=== PATIENT | female | born 1995 | race Caucasian/White ===

== ENCOUNTER 2017-07-23 21:01 | Emergency (ER) | payer OTHER ==
--- NOTE | 2017-07-23 21:23 | PDOC ---
Rapid Medical Evaluation Time Seen by Provider: 07/23/17 21:19 Medical Evaluation: 07/23/17 21:19 I have performed a brief in-person evaluation of this patient. The patient presents with a chief complaint of: mid chest pain x 1 week. Reports pain started intermittently now constant. Denies nausea or dizziness. Pertinent physical exam findings: appears anxious in triage lungs clear bilaterally + tenderness to mid chest I have ordered the following: ekg, urine The patient will proceed to the ED for further evaluation
[2017-07-23 21:24] VITALS: BP 110/69; PULSE 83; TEMP 98.8; BMI 50.5
--- NOTE | 2017-07-23 22:41 | PDOC ---
History of Present Illness - General History Source: Patient, Old Records Exam Limitations: No Limitations - History of Present Illness Initial Comments: 07/23/17 22:54 The patient is a 21 year old female with a past medical history of anemia who presents to the emergency department today with chest pain. She reports that her pain is left sided, pressure like in sensation, non-radiating, and unaccompanied by shortness of breath. She reports that she normally has a very heavy period and that her last menstrual period was one month ago. She denies taking any contraceptive. She denies any history of smoking or recent long -distance travel. She reports that her family history is positive for diabetes and blood pressure but reports that she does not know her biological father. <Jacky Ross - Last Filed: 07/23/17 23:02> - General History Source: Patient <FamCarlton bellamy - Last Filed: 07/24/17 01:43> - General Chief Complaint: Chest Pain Stated Complaint: CHEST PAIN Time Seen by Provider: 07/23/17 21:19 Past History <Jacky Ross - Last Filed: 07/23/17 23:02> - Past Medical History COPD: No - Suicide/Smoking/Psychosocial Hx Smoking History: Never smoked Have you smoked in the past 12 months: No Information on smoking cessation initiated: No Hx Alcohol Use: No Drug/Substance Use Hx: No Substance Use Type: None <Carlton Snow - Last Filed: 07/24/17 01:43> - Past Medical History Allergies/Adverse Reactions: Allergies Allergy/AdvReac Type Severity Reaction Status Date / Time No Known Allergies Allergy Verified 07/23/17 21:23 Review of Systems - Review of Systems Able to Perform ROS?: Yes Comments:: 07/23/17 22:54 CONSTITUTIONAL: Absent: fever, no chills, no fatigue EYES: Absent: visual changes ENT: Absent: ear pain, no sore throat CARDIOVASCULAR: (+) Chest pain Absent: no palpitations RESPIRATORY: Absent: cough, no SOB GI: Absent: abdominal pain, no nausea, no vomiting, no constipation, no diarrhea GENITOURINARY: Absent: dysuria, no frequency, no hematuria MUSCULOSKELETAL: Absent: back pain, no arthralgia, no myalgia SKIN: Absent: rash <Jacky Ross - Last Filed: 07/23/17 23:02> *Physical Exam - Vital Signs Last Vital Signs Temp Pulse Resp BP Pulse Ox 98.8 F 83 18 110/69 100 07/23/17 21:20 07/23/17 21:20 07/23/17 21:20 07/23/17 21:20 07/23/17 21:20 - Physical Exam Comments: 07/23/17 22:54 GENERAL: Well-appearing, well-nourished. No apparent distress. HEENT: Normocephalic, atraumatic. PERRL, EOM intact. CARDIOVASCULAR: Normal S1, S2. Regular rate and rhythm. PULMONARY: (+) Tachypnic, mild conversational dyspnea. Clear to auscultation bilaterally. ABDOMEN: Soft, non-distended, non-tender. EXTREMITIES: Normal ROM in all four extremities. No gross deformities. SKIN: Warm, dry. No rash NEUROLOGICAL: No focal neurological deficits. 07/23/17 23:02 <Jacky Ross - Last Filed: 07/23/17 23:02> - Vital Signs Last Vital Signs Temp Pulse Resp BP Pulse Ox 98.8 F 83 18 110/69 100 07/23/17 21:20 07/23/17 21:20 07/23/17 21:20 07/23/17 21:20 07/23/17 21:20 <Carlton Snow - Last Filed: 07/24/17 01:43> Heart Score/ECG Review - ECG Impressions Comment:: 07/23/17 22:55 Normal Sinus Rhythm Normal ECG <Jakcy Ross - Last Filed: 07/23/17 23:02> ED Treatment Course - LABORATORY CBC & Chemistry Diagram: 07/23/17 23:13 07/23/17 23:13 <Carlton Snow - Last Filed: 07/24/17 01:43> Medical Decision Making - Medical Decision Making 07/24/17 01:43 Dr. Snow: The scribe's documentation has been prepared under my direction and personally reviewed by me in its entirery. I confirm that the note above accurately reflects all work, treatment, procedures, and medical decision making performed by me. <Carlton Snow - Last Filed: 07/24/17 01:43> *DC/Admit/Observation/Transfer - Attestations Scribe Attestion: 07/23/17 22:54 Documentation prepared by Jacky Ross, acting as medical equipment repair technician for Carlton Snow DO. <Jacky Ross - Last Filed: 07/23/17 23:02> - Discharge Dispostion Decision to Admit order: No <Carlton Snow - Last Filed: 07/24/17 01:43> Diagnosis at time of Disposition: Chest pain Qualifiers: Chest pain type: unspecified Qualified Code(s): R07.9 - Chest pain, unspecified - Discharge Dispostion Disposition: HOME Condition at time of disposition: Stable - Referrals Referrals: Oleg Alcala MD [Staff Physician] - - Patient Instructions Printed Discharge Instructions: DI for Chest Pain Additional Instructions: Please follow up with the doctor referred to you in the department.
[2017-07-23 23:30] LABS: BASO % 0.5 % (0-2.0); EOS % 1.5 % (0-4.5); HEMOGLOBIN 13.9 GM/dL (10.7-15.3); LYMPH % 24.8 % (8-40); MCH 28.4 pg (25.7-33.7); MEAN CELL VOLUME 83.6 fl (80-96); MONO % 9.2 % (3.8-10.2); PLATELET COUNT 302 K/MM3 (134-434); RDW 13.9 % (11.6-15.6); WHITE BLOOD COUNT 11.8 K/mm3 (4.0-10.0)
[2017-07-23 23:42] LABS: INR 1.05 (0.82-1.09); PROTHROMBIN TIME (PATIENT) 11.9 SEC (9.7-13.0)
[2017-07-23 23:44] LABS: ACTIVATED PTT 29.9 SECONDS (26.9-34.4)
[2017-07-23 23:54] LABS: ALBUMIN 4.2 g/dl (3.4-5.0); ANION GAP 10 (8-16); BILIRUBIN,TOTAL 0.4 mg/dL (0.2-1.0); BLOOD UREA NITROGEN 12 mg/dL (7-18); CALCIUM 8.9 mg/dL (8.5-10.1); CHLORIDE 110 mmol/L (98-107); CO2 19 mmol/L (21-32); CREATININE 0.7 mg/dL (0.55-1.02); GLUCOSE,RANDOM 80 mg/dL (74-106); SGPT/ALT 19 U/L (12-78); SODIUM 139 mmol/L (136-145); TOT PROT 8.3 g/dl (6.4-8.2)
[2017-07-23 23:56] LABS: ALK PHOS 61 U/L (45-117)
[2017-07-23 23:57] LABS: POTASSIUM 3.9 mmol/L (3.5-5.1); SGOT/AST 14 U/L (15-37)
--- NOTE | 2017-07-24 12:14 | EKG ---
Test Reason : Blood Pressure : / mmHG Vent. Rate : 082 BPM Atrial Rate : 082 BPM P-R Int : 180 ms QRS Dur : 078 ms QT Int : 358 ms P-R-T Axes : 059 040 058 degrees QTc Int : 418 ms NORMAL SINUS RHYTHM NORMAL ECG NO PREVIOUS ECGS AVAILABLE Confirmed by MD WILLIS, NURIA ([id number]) on 07/24/2017 12:13:39 PM Referred By: Confirmed By:NURIA PEDRO MD
== END 2017-07-24 01:46 | disposition home or self-care (01) ==
LOC: JER 21:01
DX: R07.9 Chest pain, unspecified (principal); D64.9 Anemia, unspecified
CPT/HCPCS: 36415; 71275-TC; 80053; 82550; 84484; 84703; 85025; 85379; 85610; 85730; 86850; 86900; 86901; 93005; 93010; 99281-25

== ENCOUNTER 2017-11-15 21:20 | Emergency (ER) | payer OTHER ==
[2017-11-15 21:26] VITALS: BP 100/65; PULSE 72; TEMP 98.2; BMI 23.0
--- NOTE | 2017-11-15 21:27 | PDOC ---
Rapid Medical Evaluation Chief Complaint: Pain Time Seen by Provider: 11/15/17 21:24 Medical Evaluation: Allergies Allergy/AdvReac Type Severity Reaction Status Date / Time No Known Allergies Allergy Verified 08/16/17 16:04 11/15/17 21:25 CC: Abdominal pain HPI: Pt is a 22 YO female who states she had an abrupt onset of RLQ pain x today. Denies hx of abdominal surgeries. Denies fever, denies nausea. LMP was 2 -3 weeks ago. Pain 510. I have performed a brief in- person evaluation of this patient. Pertinent Physical Findings: Skin: Clear Lungs: Clear Heart: RRR Abdomen: Pt has RLQ pain, rebound tenderness, no guarding. Neuro: Alert Psych: Appropriate affect I have ordered: Abdominal protocol The patient will proceed to: Main ED to r/o appy Discharge Disposition - Diagnosis Abdominal pain Qualifiers: Abdominal location: right lower quadrant Qualified Code(s): R10.31 - Right lower quadrant pain - Referrals - Patient Instructions - Post Discharge Activity
[2017-11-15 21:54] LABS: BASO % 0.7 % (0-2.0); EOS % 1.6 % (0-4.5); HEMATOCRIT 37.1 % (32.4-45.2); HEMOGLOBIN 12.5 GM/dL (10.7-15.3); LYMPH % 23.5 % (8-40); MCH 28.2 pg (25.7-33.7); MCHC 33.6 g/dl (32.0-36.0); MEAN CELL VOLUME 83.8 fl (80-96); MEAN PLT VOLUME 9.3 fl (7.5-11.1); MONO % 7.2 % (3.8-10.2); PLATELET COUNT 329 K/MM3 (134-434); RBC 4.43 M/mm3 (3.60-5.2); RDW 13.8 % (11.6-15.6); WHITE BLOOD COUNT 8.1 K/mm3 (4.0-10.0)
[2017-11-15] MEDS ORDERED: SODIUM CHLORIDE 1,000 ML IV STA (22:14)
[2017-11-15] MEDS ORDERED: ACETAMINOPHEN 325 MG TABLET (FP) PO ONE (22:14)
[2017-11-15 22:19] LABS: ALBUMIN 3.7 g/dl (3.4-5.0); ALK PHOS 53 U/L (45-117); ANION GAP 6 MMOL/L (8-16); BILIRUBIN,TOTAL 0.2 mg/dL (0.2-1); BLOOD UREA NITROGEN 13 mg/dL (7-18); CHLORIDE 109 mmol/L (98-107); CO2 23 mmol/L (21-32); CREATININE 0.7 mg/dL (0.55-1.3); GLUCOSE,RANDOM 125 mg/dL (74-106); LIPASE 117 U/L (73-393); POTASSIUM 3.6 mmol/L (3.5-5.1); SGOT/AST 12 U/L (15-37); SGPT/ALT 18 U/L (13-61); SODIUM 138 mmol/L (136-145); TOT PROT 7.6 g/dl (6.4-8.2)
--- NOTE | 2017-11-15 23:05 | PDOC ---
History of Present Illness - General Chief Complaint: Pain Stated Complaint: PAIN Time Seen by Provider: 11/15/17 21:24 History Source: Patient Exam Limitations: No Limitations - History of Present Illness Initial Comments: 11/15/17 22:59 Patient is 22F with history of ovarian cysts here today complaining of sudden onset suprapubic to RLQ abdominal pain that started at 3pm today. Patient states that her pain is relieved with sitting up and worsened with laying down. Denies fevers, chills, nausea, vomiting. Denies pelvic pain, dysuria and vaginal discharge. LMP 2-3 weeks ago. Denies dysuria, diarrhea, constipation. Patient is walking with crutches because of an ankle sprain diagnosed at urgent care. Past History - Past Medical History Allergies/Adverse Reactions: Allergies Allergy/AdvReac Type Severity Reaction Status Date / Time No Known Allergies Allergy Verified 11/15/17 21:26 Home Medications: Ambulatory Orders Norethindrone-E.estradiol-Iron [Junel Fe 1 mg-20 Mcg Tablet] 1 each PO DAILY 05/30 COPD: No - Reproductive History (#): 0 - Suicide/Smoking/Psychosocial Hx Smoking History: Never smoked Have you smoked in the past 12 months: No Hx Alcohol Use: No Drug/Substance Use Hx: No Substance Use Type: None Review of Systems - Review of Systems Comments:: 11/15/17 23:03 GENERAL/CONSTITUTIONAL: No fever or chills. No weakness. HEAD, EYES, EARS, NOSE AND THROAT: No change in vision. No sore throat. CARDIOVASCULAR: No chest pain or shortness of breath RESPIRATORY: No cough, wheezing, or hemoptysis. GASTROINTESTINAL: No nausea, vomiting, diarrhea or constipation. GENITOURINARY: No dysuria, frequency, or change in urination. MUSCULOSKELETAL: +R ankle pain. No neck or back pain. SKIN: No rash NEUROLOGIC: No headache, vertigo, loss of consciousness, or change in strength/ sensation. ENDOCRINE: No increased thirst. No abnormal weight change HEMATOLOGIC/LYMPHATIC: No anemia, easy bleeding, or history of blood clots. ALLERGIC/IMMUNOLOGIC: No hives or skin allergy. *Physical Exam - Vital Signs Last Vital Signs Temp Pulse Resp BP Pulse Ox 98.2 F 72 18 100/65 98 11/15/17 21:24 11/15/17 21:24 11/15/17 21:24 11/15/17 21:24 11/15/17 21:24 - Physical Exam Comments: 11/15/17 23:03 GENERAL: Awake, alert, and fully oriented, in no acute distress HEAD: No signs of trauma, normocephalic, atraumatic EYES: PERRLA, EOMI, sclera anicteric, conjunctiva clear ENT: Auricles normal inspection, hearing grossly normal, nares patent, oropharynx clear without exudates. Moist mucosa NECK: Normal ROM, supple, no lymphadenopathy, JVD, or masses LUNGS: No distress, speaks full sentences, clear to auscultation bilaterally HEART: Regular rate and rhythm, normal S1 and S2, no murmurs, rubs or gallops, peripheral pulses normal and equal bilaterally. ABDOMEN: Soft, +suprapubic tenderness, normoactive bowel sounds. No guarding, no rebound. No masses EXTREMITIES: Normal inspection, Normal range of motion, no edema. No clubbing or cyanosis. NEUROLOGICAL: Cranial nerves II through XII grossly intact. Normal speech, no focal sensorimotor deficits SKIN: Warm, Dry, normal turgor, no rashes or lesions noted. ED Treatment Course - LABORATORY CBC & Chemistry Diagram: 11/15/17 21:41 11/15/17 21:41 - ADDITIONAL ORDERS Additional order review: Laboratory Results 11/15/17 21:41 Sodium 138 Potassium 3.6 Chloride 109 H Carbon Dioxide 23 Anion Gap 6 L BUN 13 Creatinine 0.7 Creat Clearance w eGFR > 60 Random Glucose 125 H Calcium 10.0 Total Bilirubin 0.2 AST 12 L ALT 18 Alkaline Phosphatase 53 Total Protein 7.6 Albumin 3.7 Lipase 117 11/15/17 21:41 RBC 4.43 MCV 83.8 MCHC 33.6 RDW 13.8 MPV 9.3 Neutrophils % 67.0 Lymphocytes % 23.5 D Monocytes % 7.2 Eosinophils % 1.6 D Basophils % 0.7 - RADIOLOGY Radiology Studies Ordered: Category Date Time Status TRANSVAGINAL ULTRASOUND US [US] Stat Ultrasound 11/15/17 22:14 Ordered Medical Decision Making - Medical Decision Making 11/15/17 23:04 Patient is 22F with history of ovarian cysts here today with suprapubic abdominal pain. Vitals normal and stable. DDx includes, but is not limited to: ovarian cyst, ovarian cyst rupture, ovarian torsion. Will evaluate with cbc, cmp , lipase, preg, tvus. Will treat pain with tylenol. Do not believe patient has intraperitoneal diagnosis as patient is walking and sitting up without pain. 11/16/17 01:02 CBC, CMP, normal. UA shows no infection. US shows left sided ovarian cyst with fluid in pelvic cul-de-sac. Suspect patient ruptured cyst causing pain. Patient reassessed, pain has improved, but not fully resolved. Will give toradol and discharge home. Return precautions, especially for ovarian torsion given. *DC/Admit/Observation/Transfer Diagnosis at time of Disposition: Ovarian cyst - Discharge Dispostion Disposition: HOME Condition at time of disposition: Good Decision to Admit order: No - Referrals Referrals: [facility] [place] [Provider Group] - Patient Instructions Printed Discharge Instructions: DI for Ovarian Cyst Additional Instructions: Please follow up with your OBGYN this week. Please return to the ED immediately if you have any new, worsening or concerning symptoms, especially fevers, chills and icnresaing pain. Please take motrin 600mg three times per day for the next two days then as needed. - Post Discharge Activity
--- NOTE | 2017-11-15 23:17 | PDOC ---
Attending Attestation - Resident Resident Name: Ras Dill - ED Attending Attestation I have performed the following: I have examined & evaluated the patient, The case was reviewed & discussed with the resident, I agree w/resident's findings & plan - HPI HPI: 11/15/17 23:15 22-year-old female with history of ovarian cysts presents with acute onset of suprapubic/right lower quadrant pain this evening. Patient was in her usual state of normal health, describes acute onset of sharp knifelike pain in the suprapubic/umbilical region radiating to the right lower quadrant, not associated with any other [employer] or or GI complaints. No history of similar pain , no other complaints. Patient did have medical 1st trimester VTOP about 4 months ago, has been compliant with OCPs since then. Her LMP was 2 weeks ago. - Physicial Exam PE: 11/15/17 23:16 Alert, hemodynamically stable No acute distress, no jaundice or pallor Abdomen is soft and nondistended, discomfort to palpation in the periumbilical region but no guarding or rebound, no CVA tenderness - Medical Decision Making 11/15/17 23:17 22-year-old female with acute onset right pelvic pain, history of ovarian cysts. Presentation could be consistent with ovarian cyst rupture versus torsion , rule out ectopic. Question kidney stone, less likely GI etiology. Labs, urinalysis Pain control Transvaginal ultrasound Reassess
[2017-11-15] MEDS ORDERED: ACETAMINOPHEN 325 MG TABLET (FP) ONE (23:23)
[2017-11-15 23:41] LABS: URINE APPEARANCE CLEAR; URINE BILIRUBIN NEGATIVE (<2.0 mg/dL); URINE COLOR STRAW; URINE GLUCOSE (UA) NEGATIVE (NEGATIVE); URINE KETONE NEGATIVE (NEGATIVE); URINE LEUK ESTERASE TRACE (NEGATIVE); URINE NITRITE NEGATIVE (NEGATIVE); URINE PROTEIN NEGATIVE (NEGATIVE); URINE UROBILINOGEN NEGATIVE mg/dL (0.2-1.0)
[2017-11-15 23:42] LABS: HCG,QUALITATIVE URINE Negative
[2017-11-15 23:44] LABS: EPI CELLS RARE /HPF (FEW)
[2017-11-16] MEDS ORDERED: KETOROLAC TROMETHAMINE 15 MG/ML VIAL IVPUSH ONE (01:01)
[2017-11-16] MEDS ORDERED: KETOROLAC TROMETHAMINE 15 MG/ML VIAL ONE (01:07)
== END 2017-11-16 01:30 | disposition home or self-care (01) ==
LOC: JER 21:20
PROC: 3E0337Z Introduction of Electrolytic and Water Balance Substance into Peripheral Vein, Percutaneous Approach (ICD-10-PCS; principal; 2017-11-15)
PROC: 3E0333Z Introduction of Anti-inflammatory into Peripheral Vein, Percutaneous Approach (ICD-10-PCS; 2017-11-15)
DX: N83.202 Unspecified ovarian cyst, left side (principal)
CPT/HCPCS: 36415; 76830-TC; 80053; 81003; 81015; 83690; 84703; 85025; 99281-25; 99283-25; J7030

== ENCOUNTER 2019-01-29 23:05 | Emergency (ER) | payer OTHER ==
[2019-01-29 23:21] VITALS: BP 107/59; PULSE 91; TEMP 98.9; BMI 25.7
[2019-01-29] MEDS ORDERED: SODIUM CHLORIDE FOR INHALATION 3 ML VIAL.NEB IH ONE (23:58)
[2019-01-30] MEDS ORDERED: ALBUTEROL SO4 2.5/IPRATROPIUM 0.5 INH SOL 3 ML VIAL.NEB. NEB ONE ×2 (00:41→01:34)
[2019-01-30] MEDS ORDERED: DEXAMETHASONE LIQUID 0.5 MG/5 ML PO ONE (00:41)
[2019-01-30] MEDS ORDERED: DEXAMETHASONE SOD PHOSPHATE 10 MG/1 ML VIAL ONE (00:59)
[2019-01-30] MEDS: ALBUTEROL SO4 2.5/IPRATROPIUM 0.5 INH SOL 3 ML VIAL.NEB. NEB SCH ×2 (01:47→02:00)
--- NOTE | 2019-01-30 01:55 | PDOC ---
History of Present Illness - General Chief Complaint: Cold Symptoms Stated Complaint: RESPIRATORY Time Seen by Provider: 01/29/19 23:38 History Source: Patient Exam Limitations: No Limitations Past History - Past Medical History Allergies/Adverse Reactions: Allergies Allergy/AdvReac Type Severity Reaction Status Date / Time No Known Allergies Allergy Verified 01/29/19 23:21 Home Medications: Ambulatory Orders Norethindrone-E.estradiol-Iron [Junel Fe 1 mg-20 Mcg Tablet] 1 each PO DAILY 05/30 Albuterol 0.083% Nebulizer Christen [Ventolin 0.083% Nebulizer Soln -] 1 neb NEB Q4H PRN #30 vial 01/30/19 Nebulizer and Compressor [Portable Nebulizer System] 1 each MC DAILY #1 each COPD: No - Reproductive History (#): 0 - Psycho Social/Smoking Cessation Hx Smoking History: Never smoked Have you smoked in the past 12 months: No Hx Alcohol Use: No Drug/Substance Use Hx: No Substance Use Type: None *Physical Exam - Vital Signs Last Vital Signs Temp Pulse Resp BP Pulse Ox 98.9 F 91 H 20 107/59 L 99 01/29/19 23:15 01/29/19 23:15 01/29/19 23:15 01/29/19 23:15 01/29/19 23:15 - Physical Exam General Appearance: No: Apparent Distress HEENT: negative: Muffled/Hoarse voice, Pharyngeal Erythema, Tonsillar Exudate Neck: positive: Supple Respiratory/Chest: positive: Wheezing (on inspiration noted). negative: Respiratory Distress, Accessory Muscle Use, Labored Respiration, Rhonchi Cardiovascular: positive: Regular Rhythm, Regular Rate, S1, S2. negative: Murmur Extremity: negative: Swelling, Calf Tenderness Neurologic: positive: Alert ED Treatment Course - RADIOLOGY Radiology Studies Ordered: Category Date Time Status CHEST PA & LAT [RAD] Stat Radiology 01/29/19 23:58 Taken - Medications Given in the ED: ED Medications Discontinued Medications Generic Name Dose Route Start Last Admin Trade Name Freq PRN Reason Stop Dose Admin Albuterol/Ipratropium 1 amp 01/30/19 00:41 01/30/19 01:10 Duoneb - NEB 01/30/19 00:42 1 amp ONCE ONE Administration Dexamethasone 10 mg 01/30/19 00:41 01/30/19 01:10 Decadron Liquid - PO 01/30/19 00:42 10 mg ONCE ONE Administration Sodium Chloride 3 ml 01/29/19 23:58 01/30/19 01:10 Normal Saline For Inhalation - IH 01/29/19 23:59 3 ml ONCE ONE Administration Medical Decision Making - Medical Decision Making 23 y/o F with no sig pmh presents with SOB x 1 week. Mentions had viral URI sxs the past 3 weeks. Went to 5 days ago and was started on Azithromycin and given Albuterol inhaler. However, states they have not helped with her SOB. Denies hx of asthma but mentions having nebulizer machine from when she was a child and frequently requiring use of that; however, states never formally diagnosed with asthma. +chest tightness. Denies fever, abd pain, n/v, calf swelling, throat pain, recent travel. Denies smoking or drug use. Denies use of OCPs. CXR negative Initially given saline neb, but with no improvement Now getting albuterol duoneb and also received decadron Mentions feeling better now Likely bronchitis No risk factors for PE (PERC negative) 01/30/19 01:00 Patient feeling much better on reassessment No further wheezing noted stable for dc 01/30/19 01:58 Discharge - Discharge Information Problems reviewed: Yes Clinical Impression/Diagnosis: Bronchitis Condition: Improved Disposition: HOME - Admission No - Additional Discharge Information Prescriptions: Albuterol 0.083% Nebulizer Christen [Ventolin 0.083% Nebulizer Soln -] 1 neb NEB Q4H PRN #30 vial PRN Reason: Shortness Of Breath Nebulizer and Compressor [Portable Nebulizer System] 1 each MC DAILY #1 each Prescription Drug Monitoring Program (I-STOP) results: I-STOP not reviewed - Follow up/Referral - Patient Discharge Instructions Patient Printed Discharge Instructions: DI for Acute Bronchitis Additional Instructions: Thank you for choosing [facility]. It was a pleasure taking care of you. Use the Albuterol nebulizer as needed for shortness of breath Follow-up with your doctor in 2 days Return to the Emergency Department if your symptoms worsen or persist or have other concerning symptoms. - Post Discharge Activity
== END 2019-01-30 02:05 | disposition home or self-care (01) ==
LOC: JER 23:05
PROC: 3E0F7GC Introduction of Other Therapeutic Substance into Respiratory Tract, Via Natural or Artificial Opening (ICD-10-PCS; principal; 2019-01-29)
PROC: 3E0F7GC Introduction of Other Therapeutic Substance into Respiratory Tract, Via Natural or Artificial Opening (ICD-10-PCS; 2019-01-29)
PROC: 3E0F7GC Introduction of Other Therapeutic Substance into Respiratory Tract, Via Natural or Artificial Opening (ICD-10-PCS; 2019-01-29)
DX: J40 Bronchitis, not specified as acute or chronic (principal)
CPT/HCPCS: 71046-TC-FY; 99281-25

== ENCOUNTER 2020-09-06 11:12 | Emergency (ER) | payer OTHER ==
[2020-09-06 11:22] VITALS: BMI 25.4
[2020-09-06] MEDS ORDERED: ACETAMINOPHEN 500 MG TABLET (FP) PO ONE (11:53)
[2020-09-06] MEDS ORDERED: ACETAMINOPHEN 500 MG TABLET (FP) ONE (12:03)
[2020-09-06 12:24] LABS: BASO % 0.8 % (0-2.0); EOS % 1.8 % (0-4.5); HEMATOCRIT 37.8 % (32.4-45.2); LYMPH % 27.5 % (8-40); MCH 28.7 pg (25.7-33.7); MCHC 34.4 g/dl (32.0-36.0); MEAN CELL VOLUME 83.3 fl (80-96); MONO % 7.4 % (3.8-10.2); NEUT % 62.5 % (42.8-82.8); PLATELET COUNT 330 10^3/uL (134-434); RBC 4.54 M/mm3 (3.60-5.2); RDW 13.6 % (11.6-15.6); WHITE BLOOD COUNT 7.6 K/mm3 (4.0-10.0)
[2020-09-06 12:50] LABS: BLOOD UREA NITROGEN 8.8 mg/dL (7-18); CALCIUM 9.6 mg/dL (8.5-10.1)
[2020-09-06 12:53] LABS: CREATININE 0.8 mg/dL (0.55-1.3)
[2020-09-06 12:55] LABS: BILIRUBIN,TOTAL 0.6 mg/dL (0.2-1); TOT PROT 7.5 g/dl (6.4-8.2)
[2020-09-06 13:13] LABS: EPI CELLS 33 /uL (0-25.1); HYALINE CASTS 2 /uL (0-3.1); PH,URINE 8.5 (5.0-8.0); URINE APPEARANCE CLEAR; URINE BACTERIA 721 /uL (0-1359); URINE BILIRUBIN NEGATIVE (NEGATIVE); URINE COLOR ORANGE; URINE GLUCOSE (UA) NEGATIVE (NEGATIVE); URINE KETONE NEGATIVE (NEGATIVE); URINE LEUK ESTERASE 1+ (NEGATIVE); URINE NITRITE NEGATIVE (NEGATIVE); URINE PROTEIN 1+ (NEGATIVE); URINE RBC 5378 /uL (0-23.9); URINE WBC 59 /uL (0-25.8)
[2020-09-06 13:17] LABS: INR 1.06 (0.83-1.09)
[2020-09-06] MEDS ORDERED: RHO(D) IMMUNE GLOBULIN 1,500 UNIT DISP.SYRIN IM ONE (14:40)
[2020-09-06 15:45] VITALS: BP 127/68; PULSE 88; TEMP 98.6
== END 2020-09-06 15:45 | disposition home or self-care (01) ==
LOC: JER 11:12
PROC: 3E0234Z Introduction of Serum, Toxoid and Vaccine into Muscle, Percutaneous Approach (ICD-10-PCS; principal; 2020-09-06)
DX: O20.8 Other hemorrhage in early pregnancy (principal)
CPT/HCPCS: 36415; 76817-TC; 80053; 81003; 84702; 85025; 85610; 86850; 86900; 86901; 86999; 87491; 87591; 99283-25; J1561

== ENCOUNTER 2020-09-08 13:09 | Emergency (ER) | payer OTHER ==
[2020-09-08 13:26] VITALS: BP 96/64; PULSE 80; TEMP 98.1; BMI 25.4
== END 2020-09-08 15:10 | disposition home or self-care (01) ==
LOC: JER 13:09
DX: O03.9 Complete or unspecified spontaneous abortion without complication (principal)
CPT/HCPCS: 36415; 84702; 99283-25

== ENCOUNTER 2021-10-09 12:18 | Emergency (ER) | payer OTHER ==
[2021-10-09 12:22] VITALS: BP 143/78; PULSE 109; RESP 22; TEMP 98; BMI 26.5
[2021-10-09] MEDS ORDERED: predniSONE 20 MG TABLET (UD) PO ONE (12:49)
[2021-10-09] MEDS ORDERED: ALBUTEROL SO4 2.5/IPRATROPIUM 0.5 INH SOL 3 ML VIAL.NEB. NEB SCH (13:00)
[2021-10-09] MEDS ORDERED: ALBUTEROL SO4 2.5/IPRATROPIUM 0.5 INH SOL 3 ML VIAL.NEB. NEB ONE ×2 (13:05→13:46)
[2021-10-09] MEDS ORDERED: predniSONE 20 MG TABLET (UD) ONE (13:06)
== END 2021-10-09 14:24 | disposition home or self-care (01) ==
LOC: JERFT 12:18 → JER 12:18 → JERFT 14:24
PROC: 3E0F7GC Introduction of Other Therapeutic Substance into Respiratory Tract, Via Natural or Artificial Opening (ICD-10-PCS; principal; 2021-10-09)
DX: J45.21 Mild intermittent asthma with (acute) exacerbation (principal)
CPT/HCPCS: 0241U-QW; 71046-TC-FY; 99284-25

== ENCOUNTER 2021-12-02 21:24 | Emergency (ER) | payer OTHER ==
[2021-12-02 21:28] VITALS: BP 105/69; PULSE 83; RESP 20; TEMP 97.6; BMI 30.1
[2021-12-02] MEDS ORDERED: SODIUM CHLORIDE 0.9% 500 ML INFUS.BAG IV ONE (22:06)
[2021-12-02] MEDS ORDERED: ACETAMINOPHEN 1000 MG/100 ML BAG IVPB ONE (22:06)
[2021-12-02] MEDS ORDERED: ACETAMINOPHEN INJECTION 100 ML IVPB ONE (22:13)
[2021-12-02 22:38] LABS: BASO % 0.7 % (0-2.0); EOS % 1.7 % (0-4.5); HEMATOCRIT 38.7 % (32.4-45.2); HEMOGLOBIN 13.3 GM/dL (10.7-15.3); LYMPH % 23.8 % (8-40); MCH 28.9 pg (25.7-33.7); MCHC 34.3 g/dl (32.0-36.0); MEAN CELL VOLUME 84.2 fl (80-96); MEAN PLT VOLUME 8.9 fl (7.5-11.1); MONO % 6.3 % (3.8-10.2); NEUT % 67.5 % (42.8-82.8); PLATELET COUNT 385 10^3/uL (134-434); RBC 4.59 M/mm3 (3.60-5.2); RDW 13.6 % (11.6-15.6); WHITE BLOOD COUNT 9.8 K/mm3 (4.0-10.0)
[2021-12-02 22:51] LABS: INR 1.08 (0.83-1.09); PROTHROMBIN TIME (PATIENT) 12.4 SEC (9.7-13.0)
[2021-12-02 22:54] LABS: ACTIVATED PTT 30.4 SECONDS (25.2-36.5)
[2021-12-02 22:57] LABS: CHLORIDE 109 mmol/L (98-107); SODIUM 142 mmol/L (136-145)
[2021-12-02 22:58] LABS: ANION GAP 8 MMOL/L (8-16); BLOOD UREA NITROGEN 12.2 mg/dL (7-18); CALCIUM 9.6 mg/dL (8.5-10.1); CO2 25 mmol/L (21-32); GLUCOSE,RANDOM 119 mg/dL (74-106)
[2021-12-02 23:01] LABS: CREATININE 0.8 mg/dL (0.55-1.3)
[2021-12-03] MEDS ORDERED: INSULIN REGULAR HUMAN 100 UNITS/ML *VIAL IVPUSH ONE (01:02)
[2021-12-03] MEDS ORDERED: MAGNESIUM SULF 50% (8.12 MEQ/2 ML-1 GM VIAL) IVPB ONE (01:02)
== END 2021-12-03 01:07 | disposition home or self-care (01) ==
LOC: JER 21:24
PROC: 3E033NZ Introduction of Analgesics, Hypnotics, Sedatives into Peripheral Vein, Percutaneous Approach (ICD-10-PCS; principal; 2021-12-02)
PROC: 3E033GC Introduction of Other Therapeutic Substance into Peripheral Vein, Percutaneous Approach (ICD-10-PCS; 2021-12-02)
DX: R07.1 Chest pain on breathing (principal)
CPT/HCPCS: 0241U-QW; 36415; 71046-TC-FY; 71275-TC; 80048; 84484; 84703; 85025; 85379; 85610; 85730; 93005; 93010; 99285-25

== ENCOUNTER 2022-04-05 23:13 | Emergency (ER) | payer OTHER ==
[2022-04-05 23:24] VITALS: BP 129/82; PULSE 82; RESP 19; TEMP 98.6; BMI 29.2
[2022-04-05] MEDS ORDERED: ALBUTEROL SO4 0.083% IH SOL 2.5 MG/3 ML VIAL.NEB. NEB ONE (23:48)
[2022-04-05] MEDS ORDERED: ACETAMINOPHEN 1000 MG/100 ML BAG IVPB ONE (23:48)
[2022-04-06] MEDS ORDERED: ACETAMINOPHEN INJECTION 100 ML IVPB ONE (00:23)
[2022-04-06] MEDS ORDERED: ALBUTEROL SO4 0.083% IH SOL 2.5 MG/3 ML VIAL.NEB. NEB ONE (00:23)
[2022-04-06 01:41] LABS: BASO % 0.8 % (0-2.0); EOS % 1.2 % (0-4.5); HEMATOCRIT 35.4 % (32.4-45.2); HEMOGLOBIN 12.2 GM/dL (10.7-15.3); LYMPH % 29.2 % (8-40); MCH 28.8 pg (25.7-33.7); MCHC 34.5 g/dl (32.0-36.0); MEAN CELL VOLUME 83.6 fl (80-96); MEAN PLT VOLUME 9.2 fl (7.5-11.1); MONO % 7.9 % (3.8-10.2); NEUT % 60.9 % (42.8-82.8); PLATELET COUNT 342 10^3/uL (134-434); RBC 4.23 M/mm3 (3.60-5.2); RDW 13.6 % (11.6-15.6); WHITE BLOOD COUNT 11.4 K/mm3 (4.0-10.0)
[2022-04-06 01:47] LABS: BLOOD UREA NITROGEN 8.1 mg/dL (7-18)
[2022-04-06 01:49] LABS: ALBUMIN 3.7 g/dl (3.4-5.0)
[2022-04-06 01:50] LABS: CREATININE 0.8 mg/dL (0.55-1.3)
[2022-04-06 01:51] LABS: BILIRUBIN,TOTAL 0.4 mg/dL (0.2-1)
[2022-04-06 01:52] LABS: TOT PROT 7.2 g/dl (6.4-8.2)
[2022-04-06 01:55] LABS: INR 1.08 (0.83-1.09); PROTHROMBIN TIME (PATIENT) 13.2 SEC (9.7-13.0)
== END 2022-04-06 04:20 | disposition home or self-care (01) ==
LOC: JER 23:13
PROC: 3E033GC Introduction of Other Therapeutic Substance into Peripheral Vein, Percutaneous Approach (ICD-10-PCS; principal; 2022-04-05)
PROC: 3E0F7GC Introduction of Other Therapeutic Substance into Respiratory Tract, Via Natural or Artificial Opening (ICD-10-PCS; 2022-04-05)
DX: R00.2 Palpitations (principal); R07.9 Chest pain, unspecified; R79.89 Other specified abnormal findings of blood chemistry
CPT/HCPCS: 36415; 71046-TC-FY; 71275-TC; 80053; 83735; 84443; 84484; 84703; 85025; 85379; 85610; 85730; 93005; 93010; 99285-25